=== PATIENT | male | born 1995 | race Caucasian/White ===

== ENCOUNTER 2018-07-02 18:03 | Emergency (ER) | payer BC ==
--- NOTE | 2018-07-02 18:21 | EDPHY ---
HPI/HX/ROS/PE/MDM Narrative: CHIEF COMPLAINT: "I feel awful;" stopped Zoloft 1 week ago HPI: The patient is a 22 y/o male with a history of depression complaining of malaise since stopping Zoloft 1 week ago after using it for 2 years. He didn't like the side effects so he chose to stop taking this medication. He first reduced the dose then stopped it completely over the last week. Since then he has felt weak, distracted, exhausted, shaky, and has a dry mouth. He denies alcohol or drug use over the last week. He is requesting a "coping medication" to treat his symptoms. He last saw his psychiatrist in [place] this summer. REVIEW OF SYSTEMS: A comprehensive 10 system review of systems is otherwise negative aside from elements mentioned in the history of present illness. PMH: Depression and anxiety - Zoloft SOCIAL HISTORY: From [place]. Last saw psychiatrist this summer. [employer] student. PHYSICAL EXAM: General:Patient is alert, in no acute distress. ENT:Eyes are normal to inspection. ENT inspection normal. Neck: Normal inspection. Full range of motion. Respiratory:No respiratory distress. Breath sounds normal bilaterally. Cardiovascular: Regular rate and rhythm. Strong peripheral pulses. Normal cap refill. Abdomen:The abdomen is nontender to palpation. There are no peritoneal signs. Back: Normal to inspection. No tenderness to palpation. Skin: Normal color. No rash. Warm and dry. Extremities: Normal appearance. Full range of motion. Neuro: Oriented x3. Normal motor function. Normal sensory function. ED Course: 22 y/o male presents with malaise after deciding to discontinue his Zoloft over the last week. He appears anxious, but otherwise has a negative exam. He is requesting medication to treat his symptoms. Discussed options with him and advised follow up with his PCP for further medication management. 5mg PO Valium ordered for symptoms here. He is comfortable with plan for follow up. - Data Points Medications Given: Discontinued Medications Diazepam (Valium) 5 mg PO EDNOW ONE Stop: 07/02/18 19:07 Last Admin: 07/02/18 19:21 Dose: 5 mg General Time Seen by Provider: 07/02/18 18:11 Initial Vital Signs: Initial Vital Signs Temperature (C) 36.6 C 07/02/18 18:05 Heart Rate 80 07/02/18 18:05 Respiratory Rate 18 07/02/18 18:05 Blood Pressure 128/89 H 07/02/18 18:05 O2 Sat (%) 96 07/02/18 18:05 O2 Delivery Mode Room Air Allergies/Adverse Reactions: No Known Allergies Allergy (Unverified 07/02/18 18:05) Home Medications: Medication Instructions Recorded NK [No Known Home Meds] 07/02/18 Departure - Departure Disposition: Home, Routine, Self-Care Clinical Impression: stopped taking Zoloft one week ago Adverse effect of sertraline Qualifiers: Encounter type: initial encounter Qualified Code(s): T43.225A - Adverse effect of selective serotonin reuptake inhibitors, initial encounter Condition: Good Instructions: Sertraline (By mouth) Additional Instructions: Follow up with your primary care provider tomorrow morning to discuss medication options. Return for worsening of condition. Referrals: [facility] ,. [Clinic] - As per Instructions [facility],. [Clinic] - As per Instructions Report Scribed for: Romaine Gambino Report Scribed by: Alma Bazzi Date of Report: 07/02/18 Time of Report: 18:12 Physician Review and Approval Statement: Portions of this note were transcribed by an ED scribe. I personally performed the history, physical exam, and medical decision making; and confirm the accuracy of the information in the transcribed note.
[2018-07-02] MEDS ORDERED: DIAZEPAM 5 MG TAB PO ONE (19:06)
[2018-07-02 19:46] VITALS: BP 114/75
== END 2018-07-02 19:46 | disposition home or self-care (01) ==
DX: T43.225A Adverse effect of selective serotonin reuptake inhibitors, initial encounter (principal); F32.9 Major depressive disorder, single episode, unspecified; F41.9 Anxiety disorder, unspecified